=== PATIENT | male | born 1985 | race Caucasian/White ===

== ENCOUNTER 2022-06-07 22:51 | Emergency (ER) | payer OTHER, SELFPAY ==
[2022-06-07 23:03] VITALS: BP 112/76; PULSE 67; O2SAT 94
[2022-06-07 23:18] VITALS: BP 113/62; PULSE 86; RESP 8; TEMP 36.4; O2SAT 86; BMI 20.9
--- NOTE | 2022-06-07 23:23 | PC.NURSE ---
+responsive to narcan adminsitration during periods of being awake, pt Pt requesting to speak to crisis because you're being mean to me.
--- NOTE | 2022-06-07 23:28 | ED.OVERDOSE ---
HPI - Overdose General Chief Complaint: Overdose Stated Complaint: fall with leg injury Time Seen by Provider: 06/07/22 23:28 Source: patient and EMS Mode of arrival: EMS Limitations: no limitations History of Present Illness HPI Narrative: Patient's history of opiate use using heroin was found at the bottom of the steps in a awkward position with shallow breathing pupil pinpoint on arrival patient breathing rate was only 8 saturating 86% at room air was given 4 mg via nasal spray after that patient started shouting did not want to get the Narcan acting up in the ER in the ER patient complaining of leg pain but able to move his legs no signs of injury noticed Related Data Allergies Allergy/AdvReac Type Severity Reaction Status Date / Time No Known Allergies Allergy Unverified 06/05/20 15:21 Review of Systems Review of Systems: Yes all other systems are reviewed and are negative [facility], [facility] Social History Social History Advance Directives: No Advance Directives Information Provided: No Physical Exam Vital Signs: Vital Signs: Last Vital Signs Temp 97.6 F 06/07/22 23:18 Pulse 86 06/07/22 23:18 Resp 8 L 06/07/22 23:18 BP 113/62 06/07/22 23:18 Pulse Ox 86 L 06/07/22 23:18 O2 Del Method 06/07/22 23:18 BMI result Body Mass Index 20.9 Appearance: Alert. Oriented X3. Shouting the ER disturbing all other patients Eyes: PERRLA, ENT: Pharynx normal. Oral Mucosa moist Neck: Normal inspection. Neck supple. CVS: Normal heart rate and rhythm. Pulses normal. Respiratory: No respiratory distress. Equal air entry bilateral, no wheezing/rales/rhonchi Abdomen: Soft and nontender. Bowel sounds are present, no mass palpable, no CVA tenderness Skin: Skin warm and dry. Normal skin color. Normal skin turgor. Extremities: No lower extremity edema. No calf tenderness no deformity or tenderness Neuro: Oriented X 3. No motor deficit. No sensory deficit. MDM - Overdose MDM Narrative Medical decision making narrative: Patient been very agitated security had to remove the patient from the ER no signs of injury noticed Discharge Plan Discharge Clinical Impression: Drug overdose Patient Disposition: Home, Self-Care Instructions: Adult Overdose (ED) Additional Instructions: Follow detox Interventions: ED Discharge Assessment Last Done: 06/07/22 23:35
--- NOTE | 2022-06-07 23:30 | PC.NURSE ---
Addendum entered by Mila Johnson RN 06/07/22 23:34: Patient was insisting he was just tired and not OD'ing or requiring narcan. Patient insisting that an oxygen sat of 85% was Sufficent Original Note: Patient was given nasal narcan d/t RR below 10 per minute and dropping oxygen to 86-88%RA. Once patient woke up from narcan he was screaming and yelling at staff, swearing at doctor, swearing at security, kicking and punching in the recliner. Dr. Cain over to see patient. offered patient to be evaluated and treated. Patient declined evaluation screaming that he was in precipitated withdrawal and he only had interest in seeing care team because we were mean. offered several times for patient to be seen and he declined. Asked security to assist patient after he discharged him.
== END 2022-06-08 00:33 | disposition home or self-care (01) ==
PROVIDERS: Emergency Provider Internal Medicine
DX: T40.1X1A Poisoning by heroin, accidental (unintentional), initial encounter (principal); R45.1 Restlessness and agitation; Y92.89 Other specified places as the place of occurrence of the external cause
CPT/HCPCS: 99283; 99284

== ENCOUNTER 2022-06-08 05:13 | Emergency (ER) | payer OTHER, SELFPAY ==
[2022-06-08 05:47] VITALS: BP 125/63; PULSE 64; RESP 16; TEMP 36.6; O2SAT 99; BMI 28.5
--- NOTE | 2022-06-08 06:31 | ED_ITS ---
HPI - Psych General Chief Complaint: Psychiatric Symptoms Stated Complaint: crisis, was here earlier Time Seen by Provider: 06/08/22 06:31 Source: patient Mode of arrival: ambulatory Limitations: no limitations History of Present Illness HPI Narrative: patient was seen earlier, agitated after receiving narcan. He was then discharged, he now comes back with a plan to hang himself. Related Data Allergies Allergy/AdvReac Type Severity Reaction Status Date / Time No Known Allergies Allergy Unverified 06/05/20 15:21 [facility] Social History Social History Advance Directives: No Advance Directives Information Provided: Yes Physical Exam Vital Signs: Vital Signs: Last Vital Signs Temp 98.7 F 06/08/22 16:14 Pulse 65 06/08/22 16:14 Resp 15 06/08/22 06:33 BP 117/53 L 06/08/22 16:14 Pulse Ox 96 06/08/22 16:14 O2 Del Method 06/08/22 16:14 BMI result Body Mass Index 28.5 Course Reevaluation(s) Reevaluation #1: patient placed in physician observation for dual diagnosis depression and substance abuse, patient to be reevaluated for both to see if his depression improves Time: 16:20 MDM - Psych Lab Data Result diagrams: 06/08/22 12:02 06/08/22 12:02 Labs: Lab Results 06/08/22 06/08/22 Range/Units 12:02 12:02 WBC 8.0 (4.8-10.8) X10*3/uL RBC 4.44 L (4.60-5.80) X10*6/uL Hgb 12.7 L (14.0-18.0) g/dl Hct 38.0 L (42.0-52.0) % MCV 85.6 (80.0-98.0) fL MCH 28.6 (27.0-33.0) pg MCHC 33.4 (31.0-36.0) g/dl RDW 12.7 (11.0-16.0) % Plt Count 327 (160-400) X10*3/uL MPV 8.8 L (9.4-12.4) fL Immature Gran % (Auto) 0.3 (0.0-0.4) % Neut % (Auto) 59.7 (45-73) % Lymph % (Auto) 32.2 (20-40) % Wilkinson % (Auto) 7.3 (2-11) % Eos % (Auto) 0.1 (0-4) % Baso % (Auto) 0.4 (0-2) % Lymph # (Auto) 2.6 (1.2-4.9) X10*3/uL Wilkinson # (Auto) 0.6 (0.1-1.2) X10*3/uL Eos # (Auto) 0.0 (0.0-0.4) X10*3/uL Baso # (Auto) 0.0 (0.0-0.2) X10*3/uL Abs Immat Gran (auto) 0.02 (0.00-0.03) X10*3/uL Absolute Neuts (auto) 4.8 (2.0-8.3) x10*3/uL Absolute Nucleated RBC 0.000 (0.0-0.012) X10*3/uL Nucleated RBC % (auto) 0.0 (0.0-0.2) /100WBC Sodium 140 (135-145) mmol/L Potassium 4.0 (3.3-5.1) mmol/L Chloride 106 (96-108) mmol/L Carbon Dioxide 23 (22-29) mmol/L Anion Gap 15 (12-20) BUN 11 (9-16) mg/dL Creatinine 0.74 (0.5-1.4) mg/dL Estim Creat Clear Calc 143.8 Estimated GFR > 60 Random Glucose 101 (60-115) mg/dL Calcium 9.5 (8.4-10.2) mg/dL Total Bilirubin 0.6 (0.0-1.0) mg/dL AST 25 (5-37) U/L ALT 21 (0-40) U/L Alkaline Phosphatase 59 (39-117) U/L Total Protein 7.4 (6.5-8.0) g/dL Albumin 3.7 (3.5-5.0) g/dL Salicylates < 5.0 L (15-30) mg/dL Acetaminophen < 1 (<30) mcg/mL Ethyl Alcohol < 10 mg/dL Discharge Plan Discharge Clinical Impression: Drug overdose, Depression Patient Disposition: Still a Patient
[2022-06-08 06:33] VITALS: BP 112/66; PULSE 56; RESP 15; TEMP 37.1; O2SAT 100
--- NOTE | 2022-06-08 07:43 | PC.NURSE ---
this PCT attempted to obtain blood work. When needle was inserted, pt lashed out and swung his arm removing the needle. Pt requests blood work to be done later and went back to sleep after apologizing for his behavior.
--- NOTE | 2022-06-08 10:04 | PC.NURSE ---
dwighteedamien completd to [facility] pt is currently sleeping, respirations even and unlabored, sitter in place
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
[2022-06-08 12:06] LABS: MANUAL DIFF FLAG NO
[2022-06-08 12:09] LABS: Basophils Percent Auto 0.4 % (0-2); Eosinophils Percent Auto 0.1 % (0-4); Hemoglobin 12.7 g/dl (14.0-18.0); Imm Gran Abs Auto 0.02 X10*3/uL (0.00-0.03); Imm Gran Pct Auto 0.3 % (0.0-0.4); Lymphocytes Absolute Auto 2.6 X10*3/uL (1.2-4.9); Lymphocytes Percent Auto 32.2 % (20-40); Mean Corpuscular HGB Conc 33.4 g/dl (31.0-36.0); Mean Corpuscular Hemoglobin 28.6 pg (27.0-33.0); Mean Corpuscular Volume 85.6 fL (80.0-98.0); Mean Platelet Volume 8.8 fL (9.4-12.4); Monocytes Absolute Auto 0.6 X10*3/uL (0.1-1.2); Monocytes Percent Auto 7.3 % (2-11); Neutrophils Absolute Auto 4.8 x10*3/uL (2.0-8.3); Neutrophils Percent Auto 59.7 % (45-73); Platelet Count 327 X10*3/uL (160-400); Red Blood Count 4.44 X10*6/uL (4.60-5.80); Red Cell Distribution Width 12.7 % (11.0-16.0)
[2022-06-08 12:24] LABS: Acetaminophen LAB < 1 mcg/mL (<30); Alanine Aminotransferase 21 U/L (0-40); Albumin Level 3.7 g/dL (3.5-5.0); Alkaline Phosphatase 59 U/L (39-117); Anion Gap 15 (12-20); Aspartate Amino Transferase 25 U/L (5-37); Bilirubin Total 0.6 mg/dL (0.0-1.0); Blood Urea Nitrogen 11 mg/dL (9-16); Calcium 9.5 mg/dL (8.4-10.2); Carbon Dioxide 23 mmol/L (22-29); Chloride 106 mmol/L (96-108); Creatinine Clr Calc Pharmacy 143.8; Estimated Glomerular Filt Rate > 60; Ethanol < 10 mg/dL; Glucose Random 101 mg/dL (60-115); Salicylate < 5.0 mg/dL (15-30); Sodium 140 mmol/L (135-145); Total Protein 7.4 g/dL (6.5-8.0)
[2022-06-08 16:14] VITALS: BP 117/53; PULSE 65; TEMP 37.1; O2SAT 96
--- NOTE | 2022-06-08 16:30 | PC.NURSE ---
client exhibits OWS, VSS states recent use of heroin 3 bundles iv daily, was narcaned here and exhibits cows score about 20-25, a/e/b sweating piloerection, nausea yawning,anxiety and dilated pupis approximately 4mm d=tw asked shira edward to weigh in she was unavailable, finn kong requested consulting davida, pt requests return to [facility] MAT
[2022-06-08] MEDS: methADONE HCl 20 MG/2 ML ORAL.CONC PO (16:45)
--- NOTE | 2022-06-08 17:09 | MHC.RECOVSUP ---
? Reason for consult Recovery support o Current location: [facility] o Identified substance use concern: Heroin - Withdrawal - Seeking ATS (detox) - Support ? Intervention: o MAT started or to be started in the ED. (Methadone) o Community resources provided o Harm reduction discussion ? Plan: o Follow up tomorrow o Patient awaiting crisis evaluation o Patient to follow up with [facility] after discharge ? Additional information: Met with Patient and he stated that he wants to go detox.. patient has a bed pending at [facility] for 9 AM... Paper will be faxs..
--- NOTE | 2022-06-08 17:22 | MHC.CARE ---
Addendum entered by Moira Ozuna, POST COMMANDER 06/08/22 17:31: Correction: During the first* visit Original Note: Pt was evaluated by [facility] crisis for complaints of suicidal ideation with a plan to hang himself. Pt arrived to the ED at 5AM this morning, approximately 6 hours after a previous visit following an accidental opiate overdose. During the direct visit the pt received narcan in the ED and became irate and verbally aggressive with staff and was voluntarily escorted off of the property by hospital security. Pt spent the majority of today sleeping and was difficult to rouse for assessment. He was seen by N at 4pm and at that time the pt was able to discuss his suicidality as being in the context of his substance use, housing insecurity, and the impact of both on his overall functioning. He is not actively suicidal at this time and is seeking substance use disorder treatment. ED debt recovery officer has met with the pt to discuss treatment options and the pt is agreeable to detox placement.
[2022-06-08 18:17] LABS: COVID-19 Test Negative (Negative); IDNOW Serial# 16C4AD1C
[2022-06-08 22:08] LABS: Amphetamine Screen Urine Not Detected (Not Detect); Barbiturates, Urine Not Detected (Not Detect); Benzodiazepines Screen Urine Not Detected (Not Detect); Cannabinoid Screen Urine Not Detected (Not Detect); Cocaine Screen Urine POSITIVE (Not Detect); Fentanyl, urine POSITIVE (Not Detect); Opiate Screen Urine POSITIVE (Not Detect); Phencyclidine Screen Urine Not Detected (Not Detect)
[2022-06-09 04:09] VITALS: BP 130/81; PULSE 60; RESP 17; TEMP 36.7; O2SAT 98
[2022-06-09] MEDS: cloNIDine HCL 0.1 MG TABLET PO (04:16)
--- NOTE | 2022-06-09 04:20 | PC.NURSE ---
Patient slept whole evening and through the night, got up at 0400 demanding to speak with doctor and medication to help him sleep, patient is asymptomatic of withdrawal at this time however exhibiting med seeking behavior, Clonidine 0.1 mg administered at 0416 for comfort, disposition detox bed search, patient accepted to [facility] ETA is 0900, VSS, behavior non concerning, will continue to monitor.
--- NOTE | 2022-06-09 07:03 | PC.NURSE ---
patient appears to remain asleep at present respirations are even and unlabored patient is in no distress
--- NOTE | 2022-06-09 09:13 | MHC.RECOVSUP ---
Recovery Support note: Patient is a 37 year old Welsh speaking male who was referred to this comic book writer for assistance getting into detox. Patient was evaluated by N and CARE Team and it was determined that patient would benefit most from substance use treatment. Patient is agreeable to this and willing to go anywhere for treatment. Patient reports using 3 bundles of heroin daily, IV. Patient reports no additional substance use. Patient is not currently connected with an MAT clinic. Patient continues to deny SI/HI and reports interest in going to detox. While awaiting evaluation, patient began to experience severe opiate withdrawal symptoms. Patient was medicated with 20mg of methadone in the emergency department. This comic book writer will assist patient in securing ATS bed.
[2022-06-09] MEDS: methADONE HCl 20 MG/2 ML ORAL.CONC PO (09:50)
--- NOTE | 2022-06-09 10:58 | MHC.CARE ---
0800 - CARE Team speaks with [facility] regarding the potential for a 9:00AM admission. Keisha ([facility]) advises CARE Team that they cannot take pt as he has a treatment plan in place to only accept him from a psych facility after he has completed treatment there. No EATs beds open at this time.
--- NOTE | 2022-06-09 13:08 | MHC.RECOVSUP ---
Recovery Support note: Patient completed intake and was accepted to [facility] detox. Patient walked away from the main entrance after [employer] arrived as he is no longer interested in treatment.
== END 2022-06-09 12:45 | disposition other institution (70) ==
PROVIDERS: Emergency Provider Emergency Medicine
DX: F33.1 Major depressive disorder, recurrent, moderate (principal); T40.1X1A Poisoning by heroin, accidental (unintentional), initial encounter; Y92.9 Unspecified place or not applicable; Z20.822 Contact with and (suspected) exposure to COVID-19; Z79.899 Other long term (current) drug therapy
CPT/HCPCS: 80053; 80143; 80179; 80307; 82077; 85025; 87635; 99284

== ENCOUNTER 2022-12-31 15:12 | Emergency (ER) | payer OTHER, SELFPAY ==
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
[2022-12-31 15:23] VITALS: BP 105/53; PULSE 80; RESP 18; TEMP 36.9; O2SAT 98; BMI 29.5
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
[2022-12-31 18:50] VITALS: PULSE 84; O2SAT 100
--- NOTE | 2022-12-31 18:50 | PC.NURSE ---
patient refused labs
[2022-12-31] MEDS: iohexoL 350 MG/ML 100 ML INFUS..BTL IV (19:27)
--- NOTE | 2022-12-31 19:35 | MHC.EDTECH ---
pt refused labs asked for sandwich and drink. pt brought to ct scan, this health technical writer reapproached pt but pt now sleeping. Will reapproach at later time.
[2022-12-31 20:35] VITALS: BP 108/56; PULSE 82; RESP 18; TEMP 36.6; O2SAT 97
--- NOTE | 2022-12-31 21:46 | PC.NURSE ---
Pt in police custody. IV line removed. Pt tolerated well. Discharge instructions reviewed with pt. Pt verbalizes understanding. Left with police officers in a wheelchair.
== END 2022-12-31 21:48 ==
PROVIDERS: Emergency Provider Emergency Medicine
DX: S27.321A Contusion of lung, unilateral, initial encounter (principal); S22.43XA Multiple fractures of ribs, bilateral, initial encounter for closed fracture; S42.101A Fracture of unspecified part of scapula, right shoulder, initial encounter for closed fracture; S42.102A Fracture of unspecified part of scapula, left shoulder, initial encounter for closed fracture; X93.XXXA Assault by handgun discharge, initial encounter; Y93.9 Activity, unspecified; Y92.9 Unspecified place or not applicable; Y99.9 Unspecified external cause status
CPT/HCPCS: 71045; 71250; 71260; 71270; 73010; 73030; 99282; 99284; Q9967

== ENCOUNTER 2024-12-31 21:15 | Emergency (ER) | payer SELFPAY ==
[2024-12-31 21:25] VITALS: BP 127/77; PULSE 109; RESP 18; TEMP 37.3; O2SAT 98
[2024-12-31 21:28] VITALS: BP 152/102; PULSE 127
[2024-12-31 22:46] VITALS: BP 110/68; PULSE 85; RESP 16; O2SAT 96
[2024-12-31 22:56] VITALS: BP 119/78; PULSE 87; RESP 12; TEMP 36.9; O2SAT 95; BMI 30.9
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
[2025-01-01 02:52] VITALS: BP 106/59; PULSE 79; RESP 12; TEMP 36.7; O2SAT 98
[2025-01-01 02:53] VITALS: BP 106/59; PULSE 79; RESP 12; TEMP 36.7; O2SAT 98
== END 2025-01-01 03:15 | disposition home or self-care (01) ==
PROVIDERS: Emergency Provider Internal Medicine
DX: T40.1X1A Poisoning by heroin, accidental (unintentional), initial encounter (principal); Y92.9 Unspecified place or not applicable; F11.10 Opioid abuse, uncomplicated; Z71.51 Drug abuse counseling and surveillance of drug abuser
CPT/HCPCS: 99284

== ENCOUNTER 2025-04-26 19:09 | Emergency (ER) | payer MEDICAID, SELFPAY ==
[2025-04-26 19:27] VITALS: BP 138/80; PULSE 82; O2SAT 95; BMI 32.3
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
[2025-04-26 19:32] VITALS: BP 120/71; PULSE 98; RESP 16; TEMP 36.8; O2SAT 98
[2025-04-26] MEDS: Naloxone HCl Nasal TAKE HOME 4 MG SPRAY 8 MG NOSTRILALT (19:32)
--- OUTSIDE RECORDS SUMMARY | 2025-04-26 19:43 | XMS_ITS | Clinical Summary ---
Author Organization [facility] it Address [address] [place] [address] Care Team Providers Care Traffic Control Supervisor Name Role Phone Maximo Brandon MD Primary Care Provider [phone] Medical History Medical History Date Comments Drug abuse and dependence (C MS/HCC V24, CMS/HCC V28) 08/09/2019 DX:Drug abuse and dependence (HCC); COMMENT: ED 07/2019: Intentional OD requiring 4 mg narcan. Admitted to [facility] 3 bags heroin, smoking crack cocaine History of suicide attempt 08/09/2019 DX:Hi story of suicide attempt; COMMENT: Intentional OD 08/08/2019 Social History Tobacco Use Types Packs/Day Years Used Date Smoking Tobacco: Every Day Cigarettes Smokeless Tobacco: Never Sex and Gender Information Value Date Recorded Sex Assigned at Not on file Legal Sex Male 10:26 AM EST Gender Identity Not on file Sexual Orientation Not on file Obstetrics History Plan of Treatment Health Maintenance Due Date Last Done Comments DTaP,Tdap,and Td Vaccines (1 - Tdap) 2003 Hepatitis B Vaccines (1 of 3 - 19+ 3-dose series) 2003 COVID-19 Vaccine ( - 2023-2 5 season) 2024 Depression Screening 09/19/2024 Influenza Vaccine (#1) 2025 HIB Vaccines Aged Out No longer eligi ble based on patient's age to complete this topic HPV Vaccines Aged Out No longer eligi ble based on patient's age to complete this topic Hepatitis A Vaccines Aged Out No long er eligible based on patient's age to complete this topic IPV Vaccines Aged Out No longer eligi ble based on patient's age to complete this topic MMR Vaccines Aged Out No longer eligi ble based on patient's age to complete this topic Meningococcal ACWY Vaccine Aged Out N o longer eligible based on patient's age to complete this topic Meningococcal B Vaccine Aged Out No l onger eligible based on patient's age to complete this topic Pneumococcal Vaccine: Pediat rics (0 to 5 Years) and At-Risk Patients (6 to 49 Years) Aged Out No longer eligible b ased on patient's age to complete this topic RSV Immunization Patients Un mila 20 months Aged Out No longer eligible b ased on patient's age to complete this topic Varicella Vaccines Aged Out No longer eligible based on patient's age to complete this topic Care Teams Traffic Control Supervisor Relationship Specialty Start Date End Date Maximo Brandon MD [address] [place] [id number] PCP - General Internal Medicine 04/12/18
--- OUTSIDE RECORDS SUMMARY | 2025-04-26 19:43 | XMS_ITS ---
Author Name [facility] Organization Unknown Care Team Organization Name Specialty Phone Email Start Date End Da te [facility] Kai Delgado Primary Care 07/27/2022 05/07/20 24
[2025-04-26 19:48] VITALS: BP 120/71; PULSE 98; RESP 16; TEMP 36.8; O2SAT 98
== END 2025-04-26 19:48 | disposition home or self-care (01) ==
PROVIDERS: Emergency Provider Emergency Medicine; PCP Internal Medicine
DX: F19.90 Other psychoactive substance use, unspecified, uncomplicated (principal)
CPT/HCPCS: 99282; 99283